=== PATIENT | male | born 1995 | race Caucasian/White ===

== ENCOUNTER 2019-03-29 04:06 | Emergency (ER) | payer OTHER, SELFPAY ==
[2019-03-29 04:08] VITALS: BP 147/88; PULSE 87; RESP 19; TEMP 36.8; O2SAT 98; BMI 35.1
[2019-03-29 04:11] VITALS: O2SAT 98
--- NOTE | 2019-03-29 04:33 | RAD_ITS ---
STUDY: X-RAY CHEST REASON FOR EXAM: Male, 23 years old. C/O CHEST COLD X 3 DAYS -- INCREASED SOB TONIGHT -- HX OF ASTHMA TECHNIQUE: Frontal and lateral views of the chest. COMPARISON: None. FINDINGS: The lungs are clear and expanded. There is no demonstrated pleural abnormality. Normal size heart. Normal mediastinum and jermaine. Normal visualized pulmonary arteries. Normal visualized aortic arch and descending thoracic aorta. Normal visualized thoracic spine. Normal visualized ribs, clavicles, and shoulders. There is no demonstrated abnormality of the visualized soft tissue structures of the upper abdomen. RAD/Chest PA and Lateral IMPRESSION: Normal x-ray examination of the chest. Electronically Signed: Keith Zhang MD at 5:27 EST , Service support ,
--- NOTE | 2019-03-29 04:35 | ED.DCSUM_ITS ---
- ER Visit Summary Date of Service: 03/29/19 Chief Complaint: Shortness of breath History of Present Illness: The patient is a 23 M who presents with shortness of breath that began yesterday. Patient states he has a history of asthma. Patient took a breathing treatment at home around midnight. Patient states his breathing has been getting progressively worse. Patient states he feels like he cannot catch his breath. Patient admits to a tightness in his chest. Patient states his breathing is worse when he lays flat. Patient admits to a cough with some white sputum. Patient denies any fevers or chills. Patient denies any chest pain. Patient denies any PE or cardiac risk factors. Physical Examination: Vital signs are stable. Patient is afebrile. Patient is in no acute distress. Oral mucosa is pink and moist. Oropharynx is clear. Neck is supple. Trachea is midline. There is no JVD. Heart was regular rate and rhythm. Lungs are diminished bilaterally. There is good respiratory effort noted. Abdomen is soft. Bowel sounds are normal. There is no tenderness. Cranial nerves II through XII are intact. There are no focal motor or sensory deficits noted. Test Results: PA and lateral chest x-ray was obtained. There is no acute cardio pulmonary process. This was interpreted by the radiologist and myself. Emergency Department Course and Treatment: Patient was given a DuoNeb aerosol here. Patient is feeling better on reevaluation. Patient was given a prescription for an albuterol inhaler. Patient was instructed to continue his aerosols as prescribed. Patient was instructed to follow-up with his primary care physician in 5 to 7 days. Patient understood and was agreeable with the plan. All questions were answered. Disposition: Discharge home Impression: Acute exacerbation of asthma This note was generated with [employer] dictation software. It may contain incorrect words, spelling, and punctuation that were not noted in review of the chart prior to signing ED Disposition - Plan for ED Patient: Disposition: Home or Assisted Living Diagnosis: Asthma exacerbation Instructions: ASTHMA, Acute (Adult) Prescriptions: Albuterol Inhaler [Ventolin Hfa] 1 - 2 puff INHALATION Q4H PRN PRN #1 inhaler PRN Reason: Wheezing Prescription Printed Referrals: Rebecca Caban MD [STAFF PHYSICIAN] - 5-7 Days Care Physician,No Primary [Primary Care Provider] - 5-7 Days
[2019-03-29 05:13] VITALS: PULSE 92; RESP 18
[2019-03-29] MEDS: Ipratropium/Albuterol Sulfate 3 ML AMPUL.NEB INHALATION (05:13)
[2019-03-29 05:37] VITALS: RESP 16; O2SAT 99
== END 2019-03-29 05:46 | disposition home or self-care (01) ==
PROVIDERS: Emergency Provider Emergency Medicine
DX: J45.901 Unspecified asthma with (acute) exacerbation (principal); F17.220 Nicotine dependence, chewing tobacco, uncomplicated
CPT/HCPCS: 71046; 94640; 99283

== ENCOUNTER 2020-02-27 18:23 | Emergency (ER) | payer OTHER, SELFPAY ==
[2020-02-27 18:23] VITALS: PULSE 110; RESP 20; O2SAT 99
[2020-02-27 18:24] VITALS: BP 161/105; PULSE 113; RESP 20; TEMP 36.6; O2SAT 99; BMI 35.5
[2020-02-27 18:26] VITALS: BP 161/105; PULSE 113; RESP 20; TEMP 36.6; O2SAT 99
[2020-02-27 18:30] VITALS: O2SAT 98
[2020-02-27] MEDS: Ipratropium/Albuterol Sulfate 3 ML AMPUL.NEB INHALATION (18:43)
[2020-02-27 18:44] VITALS: PULSE 110; RESP 16
[2020-02-27] MEDS: predniSONE 20 MG Tablet 60 MG PO (18:45)
[2020-02-27 18:50] VITALS: BP 156/77
--- NOTE | 2020-02-27 19:24 | ED.DCSUM_ITS ---
- ER Visit Summary Date of Service: 02/27/20 Chief Complaint: Shortness of breath History of Present Illness: The patient is a 24 M with no primary care physician. He reports he has a history of asthma. He ports that he has shortness of breath that spent intermittent over the past few days but is much worse today. He gets relief for approximately 1 hour with his albuterol. Is moderate at worst and severe currently. He reports that he has a nonproductive cough which is typical of his asthma. He denies any fever or chills. He reports he has aching pain to his lower chest from breathing so hard. Patient denies sick contacts. He does wear a mask. He ports that he is tested twice a week for Covid. He is not tested positive and his last test was 5 days ago. He has a test scheduled tomorrow. Physical Examination: Vitals: Stable. Afebrile. General: Well-nourished and well-developed. Head: Normocephalic atraumatic. Neck: Supple, no lymphadenopathy. No JVD. Nontender. Cardiovascular: Tachycardic regular rhythm. No murmurs. Respiratory: No respiratory distress. Mild wheezing bilateral with decreased air movement. Abdominal: Soft, nontender, nondistended, normal bowel sounds. No guarding, rebound, or peritoneal signs. Back: Nontender. Extremities: Nontender, no edema. Skin: Normal color, no rash. Neurologic: Alert and oriented ?3. Cranial nerves II through XII are intact. Normal strength and sensation. Psych: Normal affect. Emergency Department Course and Treatment: Patient was given albuterol Atrovent aerosol and states that he feels much better. He was given prednisone p.o. He is resting comfortably. Treatment Plan: Patient be discharged with 5-day burst of prednisone. He is also given a refill for his albuterol MDI. Instructed to follow-up with [facility] in 1 to 2 days if not improving. Return to the emergency department for any worsening symptoms. Disposition: To home in improved and stable condition. Impression: 1. Asthma exacerbation. This note was generated with [employer] software. It may contain incorrect words, spelling, and punctuation that were not noted in review of the chart prior to signing ED Disposition - Plan for ED Patient: Instructions: ED Asthma, Acute (Adult) Prescriptions: Prednisone [Deltasone] 40 mg PO DAILY #10 tablet Albuterol Inhaler [Ventolin Hfa] 1 - 2 puff INHALATION Q4H PRN PRN #1 inhaler PRN Reason: Wheezing Referrals: Alejandrina Reyes [NON-STAFF] - 1-2 Days if not improving
== END 2020-02-27 19:35 | disposition home or self-care (01) ==
LOC: ED 19:17
PROVIDERS: Emergency Provider Emergency Medicine
DX: J45.901 Unspecified asthma with (acute) exacerbation (principal); Z79.51 Long term (current) use of inhaled steroids
CPT/HCPCS: 94640; 99283

== ENCOUNTER → 2022-08-22 | Outpatient (CLI) | payer OTHER, SELFPAY ==
[2022-08-22 15:10] LABS: Absolute Lymphocyte Count 1.66 X10^3/uL (0.83-4.51); Absolute Neutrophil Count 3.3 X10^3/uL (2.0-7.7); Basophil# 0.04 X10^3/uL; Basophil% 0.7 % (0-1); Eosinophil# 0.28 X10^3/uL; Eosinophils% 4.8 % (0-5); Hematocrit 47.1 % (40-54); Hemoglobin 15.9 g/dL (13.0-16.5); Lymphocyte # 1.66 X10^3/ul (0.83-4.51); Lymphocyte % 28.6 % (19-41); Mean Corp Hgb Conc 33.8 g/dL (32-36); Mean Corpuscular Hgb 28.5 pg (27.0-32.0); Mean Corpuscular Volume 84.6 fL (80-94); Mean Platelet Vol. 10.1 fl (6.2-12.0); Monocyte% 8.6 % (0-10); NRBC Flagged by Analyzer 0 % (0-5); Platelet Count 323 K/mm3 (150-450); RBC Distribution Width CV 12.1 % (11.6-14.6); RBC Distribution Width SD 36.6 fl (35.1-43.9); Red Blood Count 5.57 M/mm3 (4.6-6.2); White Blood Count 5.8 K/mm3 (4.4-11.0)
[2022-08-22 15:33] LABS: ALB/GLOB Ratio 0.9 RATIO (0.9-2.4); AST(SGOT) 24 U/L (15-37); Alanine Aminotransfer ALT/SGPT 75 U/L (16-61); Albumin, Serum 3.7 g/dL (3.2-5.0); Alkaline Phosphatase 83 U/L (45-117); Anion Gap 5 (5-15); BUN 12 mg/dL (7-18); BUN/Creat Ratio 12.4 RATIO (10-20); Calcium,Total 8.7 mg/dL (8.5-10.1); Chloride 104 mmol/L (98-107); Cholesterol 164 mg/dL (200); Creatinine, Serum 0.97 mg/dL (0.70-1.30); EST Glomerular Filtration Rate 98 mL/min (>60); Est Glom Filt Rate - Afr Amer 119 mL/min (>60); Globulin 3.9 g/dL (2.2-4.2); Glucose 98 mg/dL (74-106); High Density Lipoprotein 24 mg/dL; Potassium 3.9 mmol/L (3.5-5.1); Protein, Total 7.6 g/dL (6.4-8.2); Sodium Level 137 mmol/L (136-145); Thyroid Stim Hormone (TSH) 0.98 uIU/mL (0.358-3.74); Triglycerides 176 mg/dL; Very Low Density Lipoprotein 35 mg/dL (5-40)
[2022-08-22 18:10] LABS: Vitamin D,25 Hydroxy 27.4 ng/mL
== END | disposition home or self-care (01) ==
LOC: BIMLAB 13:56
PROVIDERS: PCP Internal Medicine; Visit Provider Internal Medicine
DX: G47.10 Hypersomnia, unspecified (principal); Z82.49 Family history of ischemic heart disease and other diseases of the circulatory system; Z13.6 Encounter for screening for cardiovascular disorders
CPT/HCPCS: 36415; 80053; 80061; 82306; 84443; 85025

== ENCOUNTER 2023-11-03 18:45 | Emergency (ER) | payer OTHER, SELFPAY ==
[2023-11-03 18:46] VITALS: BP 152/93; PULSE 93; RESP 16; TEMP 36.6; O2SAT 96; BMI 37.7
--- NOTE | 2023-11-03 20:40 | RAD_ITS ---
INDICATION: BACK PAIN EXAMINATION/TECHNIQUE: X-RAY - XR Spine Thoracic 3 Views COMPARISON: None FINDINGS: VERTEBRAE: Preserved vertebral body height. No fracture. No spondylolisthesis. Preservation of the normal thoracic kyphosis. No significant facet arthropathy. DISCS: Disc spaces are maintained. INCLUDED CHEST/ABDOMEN: No acute abnormalities. RAD/Thoracic Spine 3 Views IMPRESSION: No evidence of thoracic spinal fracture or spondylolisthesis. Electronically Signed: Sivakumar Major MD at 22:05 EDT ,
[2023-11-03] MEDS: Acetaminophen 325 MG Tablet 650 MG PO (20:55)
--- NOTE | 2023-11-03 21:05 | RAD_ITS ---
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 FINDINGS: VERTEBRAE: Preserved vertebral body height. Tiny left L4 transverse process fracture. No spondylolisthesis. Preservation of the normal lumbar lordosis. No significant facet arthropathy. DISCS: Disc spaces are maintained. INCLUDED ABDOMEN: Included bowel gas pattern is non-obstructive. RAD/L/S Spine Min 4 Views IMPRESSION: Tiny left L4 transverse process fracture. Consider CT. Electronically Signed: Sivakumar Major MD at 22:08 EDT ,
--- NOTE | 2023-11-03 22:14 | CT_ITS ---
INDICATION: pain, abnormal xray EXAMINATION: CT LUMBAR SPINE - CT Spine Lumbar W/O Contrast Injection TECHNIQUE: Helically acquired images were obtained of the lumbar spine. 2D reformats were reviewed. A radiation dose optimization technique was used for this scan. IV Contrast dosage and agent: None. COMPARISON: None. FINDINGS: VERTEBRAE: No fracture or traumatic subluxation. No discrete lytic or blastic abnormality observed. Normal alignment. DISCS and SPINAL CANAL: Disc heights are preserved. No critical stenosis. VISUALIZED ABDOMEN: Visualized abdominal aorta is not dilated. There is no retroperitoneal adenopathy. CT/Spine Lumbar without Contrast IMPRESSION: No evidence of acute lumbar spinal fracture or spondylolisthesis. Previously seen left L4 transverse process fracture is not appreciated on this exam and was most likely artifactual. Electronically Signed: Sivakumar Major MD at 22:56 EDT ,
[2023-11-03 23:00] VITALS: BP 160/99; PULSE 75; RESP 18; O2SAT 99
--- NOTE | 2023-11-03 23:56 | ED.VIS.BACK ---
HPI History of Present Illness Chief Complaint: Back Informant: patient Narrative Narrative: Patient is a 28-year-old male presenting with acute back pain. 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 He felt a ripping sensation. He says he has had this back pain since. Denies associate numbness and tingling. Denies any bowel or bladder symptoms. Reports remote history of back injury about 10 years ago with a 4 bianchi but he never had this evaluated. Notes he has had sciatica in the past. Did take Motrin at 1730. No other complaints or concerns at this time. Prior similar symptoms: No PFSH PFSH Medical History Acute streptococcal pharyngitis ADHD History of depression Seasonal allergies Asthma Home Medications ?Medication ?Instructions ?Recorded ?Last Taken ?Type albuterol sulfate 90 mcg/actuation 1 - 2 puff inhalation Q4H PRN PRN 09/02/23 Unknown Rx aerosol inhaler Wheezing ##1 bupropion HCl 150 mg 24 hr tablet, 150 mg PO QAM #30 tabs 10/23/23 Unknown Rx extended release oxycodone-acetaminophen 5 mg-325 1 tab PO Q6H PRN pain 3 days #12 11/04/23 Unknown Rx mg tablet (Percocet) tabs Allergy/AdvReac Type Severity Reaction Status Date / Time No Known Allergies Allergy Verified 11/05/23 14:35 Family History Father Alcoholism Depression Grandfather Asthma Depression Diabetes Hypertension Mother Asthma Myocardial infarction age <30, passed prior to age 40 Depression Hypertension Heart disease Uncle Alcoholism Depression Heart disease Grandmother Alcoholism Depression Diabetes Hypertension Heart disease Surgical History No significant past surgical history Social History household members: family current occupational status: employed current occupation: [employer] Smoking Status: Never smoker Smokeless tobacco user: dissolvable tobacco second hand exposure: No alcohol intake: current alcohol intake frequency: a few times a month Alcohol type: beer and hard liquor substance use type: does not use and former substance user Date of last use: smoked marijuana in high school what type of physical activity do you participate in: walking frequency: 5-6 times per week seatbelt use: always do you feel safe at home: Yes ROS ROS ED Constitutional Constitutional ED: Denies chills or fever(s) Cardiovascular Cardiovascular: Denies chest pain Gastrointestinal Gastrointestinal: Denies nausea or vomiting Musculoskeletal Musculoskeletal: Reports back pain; Denies arthralgias, myalgias or neck pain Integumentary Denies rash Neurologic Neurologic: Denies paresthesias or weakness Psychiatric Psychiatric: Denies anxiety Hematologic/Lymphatic Hematologic/Lymphatic: Denies easy bleeding or easy bruising EXAM Physical Exam Const Vital Signs: 11/03/23 18:46 11/03/23 23:00 Temperature 98 F Temperature Source Oral Pulse Rate 93 75 Respiratory Rate 16 18 Blood Pressure 152/93 H 160/99 H Blood Pressure Mean 112 119 Pulse Ox 96 99 Oxygen Delivery Method Room Air Room Air Positive well nourished and well developed General Appearance ED: well developed HEENT Reports moist mucous membranes Neck supple Resp normal respiratory effort and clear to auscultation bilaterally Cardio regular rate and regular rhythm Back/Spine normal to inspection Back/Spine Narrative: Midline tenderness at approximately L4/L5 as well as some mild paraspinal tenderness bilaterally in that area. Patient has left-sided lower thoracic to approximately L3 paraspinal tenderness to palpation. On repeat exam he is now having spasm in that area. No hematoma to the area appreciated. Extremity normal to inspection Neuro oriented x3 and no sensory deficits noted Neuro Narrative: Patient has negative straight leg test bilaterally. Normal plantar dorsiflexion. Slight weakness with hip flexion of the left but does seem to be limited secondary to pain. Patient able to ambulate appropriately. Psych mental status grossly normal Skin no rashes or lesions noted and no wounds MDM MDM MDM Narrative Medical decision making narrative: Patient is evaluated for acute episode of back pain. He was attempting to lift a 400 pound patient. He felt a ripping/tearing sensation in his left mid back. On exam he has tenderness of the left paraspinal area as well as more midline in the lower lumbar area. Thoracic and lumbar x-rays obtained. No acute abnormality noted on thoracic x-ray reviewed by myself as well as radiology. Lumbar spine shows a tiny left L4 transverse process fracture. CT is obtained to better evaluate this. CT does not show any acute fracture or abnormality. Likely artifact on the prior x-ray. Patient drove here. He is initially given Tylenol for pain. Then given a Lidoderm patch. Will be discharged home with prescription for Percocet for further pain control. I suspect this is more of a muscle strain/tear. Will be treated conservatively at this time. Is given Work[employer] Compensation follow-up. Given the does not have acute bony fractures or acute neurologic abnormalities I do not think he needs a spine referral at this time. Patient verbalized agreement understand this plan. Able to ambulate out of the emergency room. Radiography Diagnostic Testing: Clinical Impression(s) from Imaging Studies Thoracic Spine X-Ray 11/03/23 20:40 IMPRESSION: No evidence of thoracic spinal fracture or spondylolisthesis. Electronically Signed: Sivakumar Major MD at 22:05 EDT Reading Location ID and State: [email or web address] Tel , Service support , Lumbar Spine X-Ray 11/03/23 21:05 IMPRESSION: Tiny left L4 transverse process fracture. Consider CT. Electronically Signed: Sivakumar Major MD at 22:08 EDT Reading Location ID and State: [employer] / [place] Tel , Service support , Lumbar Spine CT 11/03/23 22:14 IMPRESSION: No evidence of acute lumbar spinal fracture or spondylolisthesis. Previously seen left L4 transverse process fracture is not appreciated on this exam and was most likely artifactual. Electronically Signed: Sivakumar Major MD at 22:56 EDT , Discharge Plan Triage Chief Complaint: Back ED Provider: Dayan Michael Dx/Rx/DC Orders Clinical Impression: Acute back pain, Back muscle spasm Instructions: ED Back Pain (Acute or Chronic), ED Back Sprain/Strain Prescriptions: New oxycodone-acetaminophen [Percocet] 5-325 mg tablet 1 tab PO Q6H PRN (Reason: pain) 3 Days Qty: 12 0RF No Action albuterol sulfate 90 mcg/actuation HFA aerosol inhaler 1 - 2 puff inhalation Q4H PRN PRN (Reason: Wheezing) Qty: 1 0RF bupropion HCl 150 mg tablet extended release 24 hr 150 mg PO QAM Qty: 30 0RF Stand Alone Forms: Work Status Form Primary Care Provider: Laura Naylor Referrals: Laura Naylor MD [Primary Care Provider] - [facility] [Non[facility]] - 3-5 Days Activity Restrictions/Additional Instructions: Your x-ray showed a questionable fracture of your lumbar spine however CT which is a better imaging modality did not show any fracture. Likely this was artifact and a false positive on the first x-ray. I suspect you have a muscle strain or even tear from lifting today. Likely this is causing spasm and pain. Continue to take ibuprofen up to 600 mg every 6 hours and use [id number] Lidoderm patches (Exer strength 4%) as needed for pain. Follow-up with [facility] [facility] ([facility]) Print Language: Ecuadorean Disposition Disposition: Home, Self Care Discharge Date/Time: 11/04/23 00:27
[2023-11-04] MEDS: Lidocaine 5% Patch 1 PATCH TOPICAL (00:19)
[2023-11-04 00:22] VITALS: BP 156/78; PULSE 72; RESP 18; TEMP 36.9; O2SAT 97
== END 2023-11-04 00:27 | disposition home or self-care (01) ==
PROVIDERS: Emergency Provider Emergency Medicine; PCP Internal Medicine; Visit Provider Emergency Medicine
DX: M54.9 Dorsalgia, unspecified (principal); M62.830 Muscle spasm of back; X50.0XXA Overexertion from strenuous movement or load, initial encounter; F32.A Depression, unspecified; J45.909 Unspecified asthma, uncomplicated; F17.290 Nicotine dependence, other tobacco product, uncomplicated; Z79.899 Other long term (current) drug therapy
CPT/HCPCS: 72072; 72110; 72131; 99283

== ENCOUNTER → 2024-03-31 | Outpatient (CLI) | payer OTHER, SELFPAY ==
--- NOTE | 2024-03-31 10:01 | RAD_ITS ---
PROCEDURE: CHEST PA AND LATERAL REASON FOR EXAM: Three-week history of cough and fever. TECHNIQUE: Frontal and lateral views of the chest. COMPARISON: Comparison is made with prior study dated March 29, 2019. FINDINGS: The heart size is normal. The mediastinal contour is unremarkable. The lungs are clear. The bones are unremarkable. RAD/Chest PA and Lateral IMPRESSION: NEGATIVE CHEST Reading Location: [facility]
== END | disposition home or self-care (01) ==
LOC: MTRAD 10:01
PROVIDERS: PCP Internal Medicine; Referring Provider Physician Assistant; Visit Provider Physician Assistant
DX: R05.1 Acute cough (principal)
CPT/HCPCS: 71046